=== PATIENT | male | born 1990 | race Caucasian/White ===

== ENCOUNTER 2018-04-25 19:47 | Emergency (ER) | payer OTHER, SELFPAY ==
[2018-04-25 19:49] VITALS: BP 120/77; PULSE 112; PULSE 114; RESP 19; TEMP 37.7; O2SAT 98; BMI 27.7
--- NOTE | 2018-04-25 20:07 | ED.DCSUM_ITS ---
- ER Visit Summary Date of Service: 04/25/18 Chief Complaint: Sore throat History of Present Illness: The patient is a 28 M who had a sore throat that started yesterday. It is worse with swallowing. His temp was 101.6 at home. He has been trying Aleve without any relief. He does have a history of strep throat in the past. He denies a cough Physical Examination: Vital signs are reviewed. HEENT exam reveals posterior oropharyngeal erythema. There is some tonsillar swelling. No exudates. The rest the exam is unremarkable Test Results: [] Emergency Department Course and Treatment: Patient will be treated with Bicillin. Will follow up with PCP Treatment Plan: [] Disposition: Discharge Impression: Pharyngitis This note was generated with [employer] dictation software. It may contain incorrect words, spelling, and punctuation that were not noted in review of the chart prior to signing ED Disposition - Plan for ED Patient: Chief Complaint: Sore Throat Referrals: Mitchell Nam PA-C [Primary Care Provider] -
--- NOTE | 2018-04-25 20:07 | ED.DEP ---
ED Disposition - Plan for ED Patient: Disposition: Home or Assisted Living Chief Complaint: Sore Throat Instructions: ED Strep Pharyngitis Conf Referrals: Mitchell Nam PA-C [Primary Care Provider] -
[2018-04-25] MEDS: Penicillin G Benzathine 1.2 MU/2 ML Syringe IM (20:22)
[2018-04-25 20:52] VITALS: BP 112/67; PULSE 102; RESP 18
== END 2018-04-25 20:52 | disposition home or self-care (01) ==
PROVIDERS: Emergency Provider Emergency Medicine; Family Provider Physician Assistant Surgical; PCP Physician Assistant Surgical
DX: J02.9 Acute pharyngitis, unspecified (principal); R50.9 Fever, unspecified
CPT/HCPCS: 96372; 99282

== ENCOUNTER → 2021-02-23 16:41 | Outpatient (CLI) | payer OTHER, SELFPAY | PROVIDERS: PCP Physician Assistant Surgical; Referring Provider Podiatrist Foot & Ankle Surgery; Visit Provider Podiatrist Foot & Ankle Surgery | DX: Z11.59 Encounter for screening for other viral diseases (principal) | CPT/HCPCS: 87635; C9803; U0002 ==